=== PATIENT | female | born 1995 | race Caucasian/White ===

== ENCOUNTER 2016-08-15 21:30 | Emergency (ER) | payer MEDICAID, OTHER ==
[~2016-08-15] VITALS: Ht 167.6 cm; Wt 120.0 kg
[2016-08-15 21:39] VITALS: BP 133/62; PULSE 89; RESP 16; TEMP 97.7; O2SAT 100
[2016-08-15] MEDS ORDERED: LAMI200T PO (22:07)
[2016-08-15] MEDS ORDERED: VENL25TA PO (22:07)
[2016-08-15] MEDS ORDERED: TRAZ50TA12 PO (22:07)
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
[2016-08-15 22:10] VITALS: BP 132/60; PULSE 91; RESP 16; O2SAT 97
[2016-08-15 22:30] LABS: AUTOMATED NEUTROPHIL # 6.4 TH/MM3 (1.8-7.7); BASOPHIL % 0.4 % (0.0-2.0); EOSINOPHIL % 0.1 % (0.0-4.0); HEMATOCRIT 31.5 % (35.0-46.0); HEMO FLAGS DIFF FINAL; LYMPH % 22.3 % (9.0-44.0); MEAN CELL VOLUME 82.3 FL (80.0-100.0); MEAN CORPUSCULAR HEMOGLOBIN 27.9 PG (27.0-34.0); MEAN CORPUSCULAR HGB CONC 33.9 % (32.0-36.0); MONO % 5.1 % (0.0-8.0); NEUT % 72.1 % (16.0-70.0); PLATELET COUNT 211 TH/MM3 (150-450); RED BLOOD COUNT 3.83 MIL/MM3 (4.00-5.30); RED CELL DISTRIBUTION WIDTH 13.6 % (11.6-17.2); WHITE BLOOD COUNT 8.9 TH/MM3 (4.0-11.0)
[2016-08-15 22:39] LABS: AMPHETAMINE, URINE NEG (NEG); BARBITURATES, URINE NEG (NEG); COCAINE, URINE NEG (NEG)
[2016-08-15 22:54] LABS: ALT (GPT) 19 U/L (9-42); ANION GAP 9 MEQ/L (5-15); AST (GOT) 15 U/L (16-38); BICARBONATE 25.3 MEQ/L (21.0-32.0); BLOOD UREA NITROGEN 8 MG/DL (7-18); CHLORIDE 109 MEQ/L (98-107); GLOMERULAR FILTRATION RATE 135 ML/MIN (>89); POTASSIUM 3.2 MEQ/L (3.5-5.1); SODIUM (NA) 143 MEQ/L (136-145)
[2016-08-15 22:57] LABS: ALKALINE PHOSPHATASE 89 U/L (45-117); TOTAL BILIRUBIN ADULT 0.3 MG/DL (0.2-1.0)
--- NOTE | 2016-08-15 23:12 | PD ---
Data Data Last Documented VS Vital Signs Date Time Temp Pulse Resp B/P Pulse Ox O2 Delivery O2 Flow Rate FiO2 08/15/16 23:45 84 16 127/64 98 Room Air 08/15/16 21:39 97.7 Orders Complete Blood Count With Diff (08/15/16 21:39) Comprehensive Metabolic Panel (08/15/16 21:39) Drug Screen, Random Urine (08/15/16 21:39) Alcohol (Ethanol) (08/15/16 21:39) Psych Screen (08/15/16 21:39) Salicylates (Aspirin) (08/15/16 21:46) Tylenol (Acetaminophen) (08/15/16 21:46) Call Poison Control (08/15/16 21:46) Electrocardiogram (08/15/16 ) Beta Hcg (Quant/Titer) (08/15/16 23:03) Labs Laboratory Tests Test 08/15/16 08/15/16 22:05 22:10 White Blood Count 8.9 TH/MM3 Red Blood Count 3.83 MIL/MM3 Hemoglobin 10.7 GM/DL Hematocrit 31.5 % Mean Corpuscular Volume 82.3 FL Mean Corpuscular Hemoglobin 27.9 PG Mean Corpuscular Hemoglobin 33.9 % Concent Red Cell Distribution Width 13.6 % Platelet Count 211 TH/MM3 Mean Platelet Volume 8.3 FL Neutrophils (%) (Auto) 72.1 % Lymphocytes (%) (Auto) 22.3 % Monocytes (%) (Auto) 5.1 % Eosinophils (%) (Auto) 0.1 % Basophils (%) (Auto) 0.4 % Neutrophils # (Auto) 6.4 TH/MM3 Lymphocytes # (Auto) 2.0 TH/MM3 Monocytes # (Auto) 0.5 TH/MM3 Eosinophils # (Auto) 0.0 TH/MM3 Basophils # (Auto) 0.0 TH/MM3 CBC Comment DIFF FINAL Differential Comment Sodium Level 143 MEQ/L Potassium Level 3.2 MEQ/L Chloride Level 109 MEQ/L Carbon Dioxide Level 25.3 MEQ/L Anion Gap 9 MEQ/L Blood Urea Nitrogen 8 MG/DL Creatinine 0.57 MG/DL Estimat Glomerular Filtration 135 ML/MIN Rate Random Glucose 89 MG/DL Calcium Level 8.1 MG/DL Total Bilirubin 0.3 MG/DL Aspartate Amino Transf 15 U/L (AST/SGOT) Alanine Aminotransferase 19 U/L (ALT/SGPT) Alkaline Phosphatase 89 U/L Total Protein 6.5 GM/DL Albumin 3.7 GM/DL Salicylates Level 1.8 MG/DL Acetaminophen Level LESS THAN 2.0 MCG/ML Ethyl Alcohol Level 7 MG/DL Human Chorionic Gonadotropin, LESS THAN 1 Quant MIU/ML Urine Opiates Screen NEG Urine Barbiturates Screen NEG Urine Amphetamines Screen NEG Urine Benzodiazepines Screen NEG Urine Cocaine Screen NEG Urine Cannabinoids Screen POS MDM Supervised Visit with TIARA: Yes Narrative Course Patient care assumed from Roney Delcid PA-C at 2300. Patient is a 21-year-old female presents emergency department after taking 10 trazodone to help her sleep. She is under a Alvarez act. According to poison control she should be observed in the emergency department for 6 total hours. Afterwards she can be medically cleared. They recommended repeat EKGs and symptomatically management. I have reviewed both EKG's. On arrival patient had negative QRS in lead III otherwise intervals WNL. Repeat EKG shows positive QRS in Lead III and otherwise no change. I believe this is due to lead placement and nothing else. I have examined patient and she appears well and has no abnormal clinical findings nor symptoms to suggest life or limb threatening ingestion. She is discussed with Sudeep Girard PAC to reassess at 0330 (6hrs into obs time), if remains stable can be cleared medically at that time. Diagnosis Primary Impression: Overdose Qualified Code: T50.902A - Overdose, intentional self-harm, initial encounter Additional Impression: Bipolar 1 disorder Condition: Stable Shaquille Santillan MD Aug 15, 2016 23:12
[2016-08-15 23:45] VITALS: BP 127/64; PULSE 84; RESP 16; O2SAT 98
[2016-08-16 00:14] LABS: BETA HCG QUANT LESS THAN 1 MIU/ML (0-5)
[2016-08-16 04:05] VITALS: BP 141/63; PULSE 97; RESP 19; O2SAT 98
[2016-08-16 06:27] VITALS: BP 140/77; PULSE 90; RESP 18; O2SAT 99
[2016-08-16 11:00] VITALS: BP 111/59; PULSE 79; RESP 18
[2016-08-16] MEDS ORDERED: POTASSIUM CL 40 MEQ/30 ML LIQ UDC PO ONE (11:30)
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
--- NOTE | 2016-08-16 13:35 | EKG ---
Date Performed: 08/15/2016 Time Performed: 22:06:56 PTAGE: 21 years EKG: Sinus rhythm MODERATE VOLTAGE CRITERIA FOR LVH, CONSIDER NORMAL VARIANT BORDERLINE ECG NO PREVIOUS TRACING DOCTOR: Tracey Hennessy Interpretating Date/Time 08/16/2016 13:33:05
--- NOTE | 2016-08-16 13:41 | EKG ---
Date Performed: 08/16/2016 Time Performed: 00:58:33 PTAGE: 21 years EKG: Sinus rhythm NORMAL ECG PREVIOUS TRACING : 08/15/2016 22.06 Since previous tracing, no significant change noted DOCTOR: Tracey Hennessy Interpretating Date/Time 08/16/2016 13:35:22
== END 2016-08-16 16:04 | disposition home or self-care (01) ==
LOC: NEPA 21:30 → NEPJ 08-16 16:04
DX: T50.902A Poisoning by unspecified drugs, medicaments and biological substances, intentional self-harm, initial encounter (principal); F31.9 Bipolar disorder, unspecified; F41.8 Other specified anxiety disorders; F12.10 Cannabis abuse, uncomplicated
CPT/HCPCS: 80053; 80307; 80320; 80329; 84702; 85025; 93005; G0480